=== PATIENT | male | born 1965 | race Hispanic/Latino ===

== ENCOUNTER 2022-03-26 05:23 | Emergency (ER) | payer OTHER ==
--- OUTSIDE RECORDS SUMMARY | 2022-03-26 05:26 | XMS REPORT | Continuity of Care Document ---
:1965 Author Organization [facility] t Address [address] [place] [address] Care Team Providers Name Role Phone Lab, Adc Fam Pob I Attending Clinician Unavailable George Cao Attending Clinician Ghassan YIN Attending Clinician GHASSAN Attending Clinician Unavailable Payers Payer Name Policy Type Policy Number Effective Date Expiration Date S ource Problems Condition Condition Condition Status Onset Resolution Last Treating Co mments Source Name Details Category Date Date Treatment Clinician Date No known No known Disease Unive rs active active ity of problems problems [facility] Allergies, Adverse Reactions, Alerts Allergy Allergy Status Severity Reaction(s) Onset Inactive Treating Comm ents Source Name Type Date Date Clinician NO KNOWN Drug Active Univers ALLERGIE Class ity of S [facility] Social History Social Habit Start Date Stop Date Quantity Comments Source Exposure to Not sure [facility] SARS-CoV-2 (event) [facility] Sex Assigned At [birth year] [facility] 00:00:00 00:00:00 [facility] Smoking Status Start Date Stop Date Source Unknown if ever smoked [facility] Medications Ordered Filled Start Stop Current Ordering Indication Dosage Frequency Signature Comments Components Source Medication Medication Date Date Medication? Clinician (SIG) Name Name No known No Univers medications ity [facility] Procedures This patient has no known procedures. Encounters Start End Encounter Admission Attending Care Care Encounter Source Date/Time Date/Time Type Type Clinicians Facility Department ID 2021-02-07 2021-02-07 Laboratory Lab, Adc Fam Pob I [facility] [id number] Univers 16:07:16 16:27:16 Only Deepthi Gibson [facility] [id number] ity of Fernando Amaya [id number] [place] [facility] [id number] [place] [address] Office [facility] 2021-02-07 2021-02-07 Outpatient R [facility] [id number] Univers 16:00:00 16:00:00 FERNANDO brown of [facility] Results This patient has no known results.
[2022-03-26] MEDS ORDERED: NA CHLORIDE 0.9% 1,000 ML ONE (07:25)
[2022-03-26 07:39] LABS: Absolute Lymphocytes (CBC) 1.6 K/uL (0.7-4.9); Lymphocytes % 18.9 % (15.3-44.8); MPV 8.6 fL (7.6-11.3); RBC Red Blood Cell Count 4.95 M/uL (4.33-5.43)
[2022-03-26 08:01] LABS: Potassium 4.1 mmol/L (3.5-5.1); Troponin High Sensitivity 6.8 pg/mL (<58.9)
--- NOTE | 2022-03-26 08:08 | RAD REPORT ---
EXAM DESCRIPTION: CT - Head C Spine Mpr Wo Con - 03/26/2022 7:39 am CLINICAL HISTORY: Numbness TECHNIQUE: Computed axial tomography of the head and cervical spine was obtained. Sagittal and coronal reconstruction was performed. All CT scans are performed using dose optimization technique as appropriate and may include automated exposure control or mA/KV adjustment according to patient size. FINDINGS: An intracranial bleed is not seen. The ventricles are normal in caliber. An extra-axial fl uid collection is not noted.Fluid within the visualized sinuses and mastoids is not seen A cervical fracture is not visualized. No dislocation is noted. Spondylosis C5-6 results in moderate left foraminal stenosis. 6 millimeter area sclerosis within the C5 vertebral body IMPRESSION: No acute intracranial abnormality is seen. A cervical fracture is not visualized. Spondylosis C5-6 resulting in moderate left foraminal stenosis 6 millimeter area sclerosis within C5 vertebral body is nonspecific. Bone island and metastasis can r esult in this appearance. If the patient continues to have symptoms to suggest intracranial /spinal cord/ spinal canal patholog y then MRI would be recommended
--- NOTE | 2022-03-26 08:11 | RAD REPORT ---
EXAM DESCRIPTION: Liane Single View03/26/2022 7:50 am CLINICAL HISTORY: Numbness COMPARISON: 2015 FINDINGS: The lungs appear clear of acute infiltrate. The heart is normal size IMPRESSION: No acute abnormalities displayed
--- NOTE | 2022-03-26 09:45 | ER ---
Nurse's Notes [facility] Name: Antonia Fairbanks Age: 56 yrs Sex: Male : 1965 Arrival Date: 03/26/2022 Time: : Bed 6 Private MD: Diagnosis: Paresthesia of skin;Other idiopathic peripheral autonomic neuropathy Presentation: 03/26 05:41 Chief complaint: Patient states: for the past few months he wakes up with his arms 5 feeling tingly and like they are falling asleep. spoke to Dr Houston who wants him to get blood work done but has not done so yet. Coronavirus screen: Vaccine status: Patient reports being unvaccinated. Ebola Screen: No symptoms or risks identified at this time. Initial Sepsis Screen: Does the patient meet any 2 criteria? No. Patient's initial sepsis screen is negative. Does the patient have a suspected source of infection? No. Patient's initial sepsis screen is negative. Risk Assessment: Do you want to hurt yourself or someone else? Patient reports no desire to harm self or others. Onset of symptoms was March 26, 2022. 05:41 Method Of Arrival: Ambulatory [facility] 05:41 Acuity: BRIANNA 3 5 Triage Assessment: 05:50 General: Appears in no apparent distress. Behavior is cooperative. Pain: Denies pain. [facility] Neuro: Level of Consciousness is awake, alert, obeys commands, Oriented to person, place, time, situation, Crystallographer are equal bilaterally Moves all extremities. Full function Gait is steady, Speech is normal, Facial symmetry appears normal, Reports numbness in right arm and left arm since a few months. Historical: - Allergies: 05:44 No Known Allergies; 5 - Home Meds: 05:44 olmesartan oral [Active]; aspirin 81 mg oral tab [Active]; 5 - PMHx: 05:44 Hypertensive disorder; 5 - Immunization history:: Client reports having NOT received the Covid vaccine. - Social history:: Smoking status: Patient denies any tobacco usage or history of. Patient/guardian denies using alcohol. Screenin:10 Abuse screen: Denies threats or abuse. Nutritional screening: No deficits noted. vg1 Tuberculosis screening: No symptoms or risk factors identified. Fall Risk No fall in past 12 months (0 pts). No secondary diagnosis (0 pts). IV access (20 points). Ambulatory Aid- None/Bed Rest/Nurse Assist (0 pts). Gait- Normal/Bed Rest/Wheelchair (0 pts) Mental Status- Oriented to own ability (0 pts). Total Roman Fall Scale indicates No Risk (0-24 pts). Assessment: 07:10 General: Appears in no apparent distress. comfortable, Behavior is calm, cooperative. vg1 Pain: Denies pain. Neuro: Petit Agitation-Sedation Scale (RASS): 0 - Alert and Calm Level of Consciousness is awake, alert, obeys commands, Oriented to person, place, time, situation, Crystallographer are equal bilaterally Moves all extremities. Gait is steady, Speech is normal, Facial symmetry appears normal, Reports numbness paresthesias in right arm and left arm since x 2-3 months. Cardiovascular: Patient's skin is warm and dry. Respiratory: Airway is patent Respiratory effort is even, unlabored. GI: No signs and/or symptoms were reported involving the gastrointestinal system. : No signs and/or symptoms were reported regarding the genitourinary system. EENT: No signs and/or symptoms were reported regarding the EENT system. Derm: Skin is intact, is healthy with good turgor. Musculoskeletal: Circulation, motion, and sensation intact. 08:56 Reassessment: Patient appears in no apparent distress at this time. No changes from vg1 previously documented assessment. Patient and/or family updated on plan of care and expected duration. Pain level reassessed. Patient is alert, oriented x 3, equal unlabored respirations, skin warm/dry/pink. 09:52 Reassessment: Patient appears in no apparent distress at this time. No changes from vg1 previously documented assessment. Patient and/or family updated on plan of care and expected duration. Pain level reassessed. Patient is alert, oriented x 3, equal unlabored respirations, skin warm/dry/pink. Vital Signs: 05:41 BP 129 / 80; Pulse 73; Resp 18; Temp 98.2(TE); Pulse Ox 100% on R/A; Weight 90.72 kg; sm5 Height 5 ft. 4 in. (162.56 cm); Pain 0/10; 07:15 BP 136 / 66; Pulse 75; Resp 16; Pulse Ox 99% on R/A; vg1 08:47 BP 120 / 77; Pulse 54; Resp 15; Pulse Ox 99% ; jl7 09:52 BP 118 / 64; Pulse 60; Resp 16; Pulse Ox 99% on R/A; vg1 05:41 Body Mass Index 34.33 (90.72 kg, 162.56 cm) 5 ED Course: 05:29 Patient arrived in ED. bp1 05:44 Triage completed. sm5 05:45 Arm band placed on right wrist. sm5 06:40 Aleksandra Garcia, FLACO is Primary Nurse. sm5 07:03 Justin Gomez MD is Attending Physician. kdr 07:08 Primary Nurse role handed off by Aleksandra Garcia, FLACO vg1 07:08 Lizet Duncan, FLACO is Primary Nurse. vg1 07:10 Patient has correct armband on for positive identification. Bed in low position. Call vg1 light in reach. Side rails up X 1. 07:25 Initial lab(s) drawn, by wv, sent to lab. Inserted saline lock: 20 gauge in left vg1 antecubital area, using aseptic technique. Blood collected. 07:41 CT Head C Spine In Process Unspecified. EDMS 07:54 XRAY Chest (1 view) In Process Unspecified. EDMS 09:52 No provider procedures requiring assistance completed. IV discontinued, intact, vg1 bleeding controlled, No redness/swelling at site. Pressure dressing applied. Administered Medications: 07:26 Drug: NS 0.9% 1000 ml Route: IV; Rate: 1 bolus; Site: left antecubital; vg1 09:53 Follow up: IV Status: Completed infusion; IV Intake: 1000ml vg1 Medication: 07:10 VIS not applicable for this client. vg1 Intake: 09:53 IV: 1000ml; Total: 1000ml. vg1 Outcome: 09:44 Discharge ordered by . kdr 09:52 Discharged to home ambulatory. vg1 09:52 Condition: good 09:52 Discharge instructions given to patient, Instructed on discharge instructions, follow up and referral plans. Demonstrated understanding of instructions, follow-up care. 09:52 Patient left the ED. vg1 Signatures: Dispatcher [employer] EDMS Justin Gomez MD MD kdr Leal, Jahala, RN RN 7 Lizet Duncan RN RN 1 Loraine Duenas [facility] Aleksandra Garcia, FLACO SAM sm5
--- NOTE | 2022-03-26 09:45 | EDPHYS ---
Physician Documentation [facility] Name: Antonia Fairbanks Age: 56 yrs Sex: Male : 1965 Arrival Date: 03/26/2022 Time: 05:29 Bed 6 Private MD: ED Physician Justin Gomez HPI: 03/26 08:38 This 56 yrs old Male presents to ER via Ambulatory with complaints of Numbness kdr Of Arm. 08:38 The patient or guardian complains of pain, Patient states that he for the last 2 months kdr has been having intermittent tingling and numbness to his upper extremities. This paresthesias from the elbow down and bilateral. It is intermittent and usually occurs after sleeping. He will awaken with the paresthesias in his upper extremities. Normally it resolves after a period of time. He has seen his primary care physician for the same problem and has not yet had any extensive work-up. This is been ongoing for the last 2 months. There is no precipitous change in the last few days. No other focal complaints.. Treatment prior to arrival includes: no previous treatment. Modifying factors: The symptoms are alleviated by movement. The patient has not experienced similar symptoms in the past. Historical: - Allergies: 05:44 No Known Allergies; sm5 - Home Meds: 05:44 olmesartan oral [Active]; aspirin 81 mg oral tab [Active]; sm5 - PMHx: 05:44 Hypertensive disorder; sm5 - Immunization history:: Client reports having NOT received the Covid vaccine. - Social history:: Smoking status: Patient denies any tobacco usage or history of. Patient/guardian denies using alcohol. ROS: 08:38 Constitutional: Negative for fever, chills, and weight loss, Eyes: Negative for injury, kdr pain, redness, and discharge, ENT: Negative for injury, pain, and discharge, Neck: Negative for injury, pain, and swelling, Cardiovascular: Negative for chest pain, palpitations, and edema, Respiratory: Negative for shortness of breath, cough, wheezing, and pleuritic chest pain, Abdomen/GI: Negative for abdominal pain, nausea, vomiting, diarrhea, and constipation, Back: Negative for injury and pain, : Negative for injury, bleeding, discharge, and swelling, MS/Extremity: Negative for injury and deformity, Skin: Negative for injury, rash, and discoloration, Psych: Negative for depression, anxiety, suicide ideation, homicidal ideation, and hallucinations, Allergy/Immunology: Negative for hives, rash, and allergies, Endocrine: Negative for neck swelling, polydipsia, polyuria, polyphagia, and marked weight changes, Hematologic/Lymphatic: Negative for swollen nodes, abnormal bleeding, and unusual bruising. 08:38 Neuro: Positive for tingling, of the right arm and left arm. Exam: 07:35 ECG was reviewed by the Attending Physician. kdr 08:38 Constitutional: This is a well developed, well nourished patient who is awake, alert, kdr and in no acute distress. Head/Face: Normocephalic, atraumatic. Eyes: Pupils equal round and reactive to light, extra-ocular motions intact. Lids and lashes normal. Conjunctiva and sclera are non-icteric and not injected. Cornea within normal limits. Periorbital areas with no swelling, redness, or edema. Neck: Trachea midline, no thyromegaly or masses palpated, and no cervical lymphadenopathy. Supple, full range of motion without nuchal rigidity, or vertebral point tenderness. No Meningismus. Chest/axilla: Normal chest wall appearance and motion. Nontender with no deformity. No lesions are appreciated. Cardiovascular: Regular rate and rhythm with a normal S1 and S2. No gallops, murmurs, or rubs. Normal PMI, no JVD. No pulse deficits. Respiratory: Lungs have equal breath sounds bilaterally, clear to auscultation and percussion. No rales, rhonchi or wheezes noted. No increased work of breathing, no retractions or nasal flaring. Abdomen/GI: Soft, non-tender, with normal bowel sounds. No distension or tympany. No guarding or rebound. No evidence of tenderness throughout. Back: No spinal tenderness. No costovertebral tenderness. Full range of motion. Skin: Warm, dry with normal turgor. Normal color with no rashes, no lesions, and no evidence of cellulitis. MS/ Extremity: Pulses equal, no cyanosis. Neurovascular intact. Full, normal range of motion. Neuro: Awake and alert, GCS 15, oriented to person, place, time, and situation. Cranial nerves II-XII grossly intact. Motor strength 5/5 in all extremities. Sensory grossly intact. Cerebellar exam normal. Normal gait. Psych: Awake, alert, with orientation to person, place and time. Behavior, mood, and affect are within normal limits. Vital Signs: 05:41 BP 129 / 80; Pulse 73; Resp 18; Temp 98.2(TE); Pulse Ox 100% on R/A; Weight 90.72 kg; 5 Height 5 ft. 4 in. (162.56 cm); Pain 0/10; 07:15 BP 136 / 66; Pulse 75; Resp 16; Pulse Ox 99% on R/A; vg1 08:47 BP 120 / 77; Pulse 54; Resp 15; Pulse Ox 99% ; jl7 09:52 BP 118 / 64; Pulse 60; Resp 16; Pulse Ox 99% on R/A; vg1 05:41 Body Mass Index 34.33 (90.72 kg, 162.56 cm) [facility] MDM: 09:44 Patient medically screened. kdr 15:08 Data reviewed: vital signs, nurses notes, lab test result(s), radiologic studies. kdr Counseling: I had a detailed discussion with the patient and/or guardian regarding: the historical points, exam findings, and any diagnostic results supporting the discharge/admit diagnosis, lab results, radiology results, the need for outpatient follow up. 03/26 07:15 Order name: Basic Metabolic Panel; Complete Time: 09:27 kdr 03/26 07:15 Order name: CBC with Diff; Complete Time: : kdr 03/26 07:15 Order name: NT PRO-BNP; Complete Time: :27 kdr 03/26 07:15 Order name: Troponin HS; Complete Time: : kdr 03/26 07:15 Order name: XRAY Chest (1 view); Complete Time: 09:27 kdr 03/26 07:16 Order name: CT Head C Spine; Complete Time: 09:27 kdr 03/26 07:15 Order name: EKG; Complete Time: 07:16 kdr 03/26 07:15 Order name: Cardiac monitoring; Complete Time: 07:35 kdr 03/26 07:15 Order name: EKG - Nurse/Tech; Complete Time: 07:35 kdr 03/26 07:15 Order name: IV Saline Lock; Complete Time: 07:35 kdr 03/26 07:15 Order name: Labs collected and sent; Complete Time: 07:35 kdr 03/26 07:15 Order name: O2 Per Protocol; Complete Time: 18 kdr 03/26 07:15 Order name: O2 Sat Monitoring; Complete Time: kdr EC:35 Rate is 67 beats/min. Rhythm is regular, Normal Sinus Rhythm with No ectopy. QRS [place] kdr is Normal. VT interval is normal. QRS interval is normal. QT interval is normal. Clinical impression: Normal ECG. Administered Medications: : Drug: NS 0.9% 1000 ml Route: IV; Rate: 1 bolus; Site: left antecubital; vg1 09:53 Follow up: IV Status: Completed infusion; IV Intake: 1000ml vg1 Disposition Summary: 03/26/22 09:44 Discharge Ordered Location: Home kdr Problem: new kdr Symptoms: have improved kdr Condition: Stable kdr Diagnosis - Paresthesia of skin kdr - Other idiopathic peripheral autonomic neuropathy kdr Followup: kdr - With: Private Physician - When: 2 - 3 days - Reason: If symptoms return, Further diagnostic work-up, Recheck today's complaints, Continuance of care, Re-evaluation by your physician Discharge Instructions: - Discharge Summary Sheet kdr - Peripheral Neuropathy kdr - Paresthesia, [id number] kdr Forms: - Medication Reconciliation Form kdr - Thank You Letter kdr Signatures: Dispatcher [employer] Justin Olvera MD MD kdr Lizet Duncan, RN RN vg1 Aleksandra Garcia RN RN sm5
[2022-03-26 09:57] VITALS: TEMP 98.2
[2022-03-26 09:58] VITALS: O2SAT 99
[2022-03-26 10:01] VITALS: BP 118/64
--- NOTE | 2022-03-27 13:36 | EKG ---
Test Date: 2022-03-26 Test Time: 07:20:49 Account Analyst: CARLEE MEASUREMENT RESULTS: Intervals: Rate: 67 FL: 178 QRSD: 80 QT: 386 QTc: 407 [place]: P: 38 FL: 178 QRS: 64 T: 45 INTERPRETIVE STATEMENTS: Normal sinus rhythm Normal ECG No previous ECG available for comparison Electronically Signed On 03-27-22 13:33:58 CDT by Miguel Mancini
== END 2022-03-26 09:52 | disposition home or self-care (01) ==
LOC: ER 05:23
DX: G90.09 Other idiopathic peripheral autonomic neuropathy (principal); I10 Essential (primary) hypertension; Z79.82 Long term (current) use of aspirin
CPT/HCPCS: 96361; 93005; 85025; 80048; 36415; 84484; 83880; 70450; 72125; 71045; 96360; 99284; J7030